=== PATIENT | male | born 1980 | race Caucasian/White ===

== ENCOUNTER 2022-07-22 16:52 | Emergency (ER) | payer SELFPAY ==
[2022-07-22] MEDS ORDERED: Famotidine 20 MG/2 ML SDV IVPUSH ONE (17:24)
[2022-07-22] MEDS ORDERED: Ondansetron 4 MG/2 ML SDV IVPUSH ONE ×2 (17:24→22:58)
[2022-07-22] MEDS ORDERED: Folic Acid 1 MG Tab PO ONE (17:28)
[2022-07-22] MEDS ORDERED: Thiamine 200 MG/2 ML MDV IVPUSH ONE (17:28)
[2022-07-22] MEDS ORDERED: Lactated Ringers 1,000 ML IV SCH (17:30)
[2022-07-22 18:06] LABS: ACETAMINOPHEN <2.0 ug/mL
[2022-07-22] MEDS ORDERED: Nicotine 21 MG/24 Hr Patch TRDERM ONE (19:20)
[2022-07-22] MEDS ORDERED: chlordiazePOXIDE 25 MG Cap PO ONE (22:59)
== END 2022-07-22 23:23 | disposition home or self-care (01) ==
LOC: MW.ED 16:52
DX: F10.20 Alcohol dependence, uncomplicated (principal); F17.210 Nicotine dependence, cigarettes, uncomplicated; Y90.8 Blood alcohol level of 240 mg/100 ml or more
CPT/HCPCS: 36415; 80053; 80143; 80179; 80307; 83690; 83735; 84443; 85025; 85610; 85730; 93005; 96361; 96374; 96375; 96376; 99284; A9270; J2405; J3411; J3490; J7120